=== PATIENT | male | born 1960 | race Two or more races ===

== ENCOUNTER 2019-11-23 08:23 | Inpatient (IN) | payer SELFPAY ==
[~2019-11-23] VITALS: Ht 170.2 cm; Wt 74.8 kg
[2019-11-23 08:33] VITALS: Ht 170.2 cm; Wt 74.8 kg
[2019-11-23 09:16] LABS: BASOPHIL % 0.5 % (0-2); PLATELET COUNT 207 x10^3mcL (130-400); RED CELL DISTRIBUTION WIDTH 13.8 % (11.5-14.5)
[2019-11-23 09:43] LABS: ALBUMIN 3.7 g/dL (3.4-5.0); ALKALINE PHOSPHATASE 56 U/L (46-116); ALT/SGPT 24 U/L (16-63); AST/SGOT 18 U/L (15-37); BILIRUBIN TOTAL 0.5 mg/dL (0.20-1.00); CALCIUM 8.4 mg/dL (8.5-10.1); CARBON DIOXIDE 28.9 mmol/L (21-32); CHOLESTEROL 182 mg/dL (<200); CHOLESTEROL/HDL RATIO 4.8; CREATININE SERUM 0.9 mg/dL (0.7-1.3); GFR1 > 60 mL/min; GLUCOSE SERUM 150 mg/dL (74-106); HDL CHOLESTEROL 38 mg/dL (40-60); LIPASE 128 IU/L (73-393); SODIUM SERUM 143 mmol/L (136-145); TOTAL PROTEIN, SERUM 7.5 g/dL (6.4-8.2); TRIGLYCERIDES 69 mg/dL (<150)
[2019-11-23 09:45] LABS: POTASSIUM SERUM 2.7 mmol/L (3.5-5.1)
[2019-11-23 09:46] LABS: CHLORIDE SERUM 104 mmol/L (98-107)
[2019-11-23 13:46] LABS: T3 TOTAL 1.24 ng/mL
[2019-11-23 13:57] LABS: MAGNESIUM 2.1 mg/dL (1.8-2.4); PHOSPHOROUS 2.6 mg/dL (2.5-4.9)
[2019-11-23 14:08] LABS: FREE T4 1.08 ng/dL (0.76-1.46); FREE THYROXINE INDEX 2.4 ug/dL (1.4-4.5); T4(THYROXINE) 7.3 ug/dL (4.7-13.3)
[2019-11-23 15:21] VITALS: BP 156/92
[2019-11-23 23:13] VITALS: BP 134/77
[2019-11-24 05:42] VITALS: BP 118/73
[2019-11-24 07:01] LABS: BASOPHIL % 0.8 % (0-2); PLATELET COUNT 182 x10^3mcL (130-400); RED CELL DISTRIBUTION WIDTH 14.1 % (11.5-14.5)
[2019-11-24 07:20] LABS: CALCIUM 8.3 mg/dL (8.5-10.1); CARBON DIOXIDE 28.9 mmol/L (21-32); CHLORIDE SERUM 107 mmol/L (98-107); CREATININE SERUM 0.8 mg/dL (0.7-1.3); GFR1 > 60 mL/min; GLUCOSE SERUM 108 mg/dL (74-106); POTASSIUM SERUM 4.2 mmol/L (3.5-5.1); SODIUM SERUM 143 mmol/L (136-145)
[2019-11-24 08:24] VITALS: BP 128/71
[2019-11-24 16:23] VITALS: BP 138/82
[2019-11-24 20:00] VITALS: BP 144/82
[2019-11-25 05:39] VITALS: BP 144/86
[2019-11-25 06:13] LABS: BASOPHIL % 0.5 % (0-2); PLATELET COUNT 205 x10^3mcL (130-400); RED CELL DISTRIBUTION WIDTH 14.4 % (11.5-14.5)
[2019-11-25 06:35] LABS: CALCIUM 8.5 mg/dL (8.5-10.1); CARBON DIOXIDE 27.6 mmol/L (21-32); CHLORIDE SERUM 107 mmol/L (98-107); CREATININE SERUM 0.7 mg/dL (0.7-1.3); GFR1 > 60 mL/min; GLUCOSE SERUM 134 mg/dL (74-106); POTASSIUM SERUM 3.6 mmol/L (3.5-5.1); SODIUM SERUM 143 mmol/L (136-145)
[2019-11-25 12:37] VITALS: BP 145/95
[2019-11-25 17:05] VITALS: BP 160/97
[2019-11-25 17:50] VITALS: BP 140/93
[2019-11-25 19:10] VITALS: BP 114/66
[2019-11-26 06:06] VITALS: BP 156/86
[2019-11-26 06:36] LABS: CALCIUM 8.3 mg/dL (8.5-10.1); CHLORIDE SERUM 105 mmol/L (98-107); CREATININE SERUM 0.9 mg/dL (0.7-1.3); GFR1 > 60 mL/min; GLUCOSE SERUM 129 mg/dL (74-106); POTASSIUM SERUM 4.1 mmol/L (3.5-5.1); SODIUM SERUM 141 mmol/L (136-145)
[2019-11-26 06:59] LABS: BASOPHIL % 0.6 % (0-2); PLATELET COUNT 197 x10^3mcL (130-400); RED CELL DISTRIBUTION WIDTH 14.2 % (11.5-14.5)
[2019-11-26 08:43] VITALS: BP 135/87
[2019-11-26] MEDS ORDERED: ZES5 PO (09:06)
[2019-11-26] MEDS ORDERED: BAY PO (09:06)
[2019-11-26] MEDS ORDERED: NOR5 PO (09:06)
[2019-11-26] MEDS ORDERED: LIPI20 PO (09:06)
[2019-11-26 12:39] VITALS: BP 138/88
[2019-11-26 12:49] VITALS: BP 153/89
== END 2019-11-26 16:30 | disposition home or self-care (01) | DRG 313 ==
LOC: ED 08:23 → DU 11:06 → MU 11:06 → DU 16:00 → MU 11-25 17:32
PROVIDERS: Emergency Medicine; ADMIT Internal Medicine
DX: R07.89 Other chest pain (principal); I10 Essential (primary) hypertension; E11.9 Type 2 diabetes mellitus without complications; E87.6 Hypokalemia; E78.5 Hyperlipidemia, unspecified; Z79.899 Other long term (current) drug therapy
CPT/HCPCS: 82962; 83880; 84439; G0378; J2405; J3480; J3490; Q0092